=== PATIENT | female | born 1975 | race African-American/Black ===

== ENCOUNTER 2018-05-02 13:00 | Inpatient (IN) ==
[2018-05-09 09:26] VITALS: BP 165/102
== END 2018-05-09 10:11 | disposition home or self-care (01) | DRG 305 ==
LOC: N.ED 13:00 → N.EDINP 15:45 → SUATTDRO 15:45 → N.CC 16:35
PROVIDERS: ADMIT Internal Medicine; ATTEND Internal Medicine